=== PATIENT | male | born 1995 | race Caucasian/White ===

== ENCOUNTER 2024-09-13 20:50 | Emergency (ER) | payer MEDICAID ==
[~2024-09-13] VITALS: Ht 177.8 cm; Wt 88.6 kg
--- NOTE | 2024-09-13 21:14 | ED.PDOC ---
History of Present Illness HPI Comments 29-year-old Male who came to ER for penile problems. Patient recently diagnosed to have diabetes, is on metformin, however he stopped taking his metformin a few days ago, since he claims he feels better without it. Patient coming in for swelling and pain of his penis. Has a history of yeast infection. Blood sugar taken at home was 368. Chief Complaint: Penile Problem Time Seen by MD: 21:14 Primary Care Provider: Susanne Beyer Reviewed Notes: Nurses Notes Allergies: Coded Allergies: NO KNOWN ALLERGIES (Unverified , 10/09/16) Information Source: Patient Mode of Arrival: Ambulatory Severity: Moderate Timing: Days Duration: Since onset Past Medical History PAST MEDICAL HISTORY: DM, UTI'S Past Medical History (Other): Pancreatitis Surgical History: Denies all surgeries Social History Smoker: Non-Smoker Alcohol: Denies ETOH Use Drugs: Denies Drug Use Lives In: Home Constitutional: denies: chills, diaphoresis, fatigue, fever, malaise, sweats, weakness, others EENTM: denies: blurred vision, double vision, ear bleeding, ear discharge, ear drainage, ear pain, ear ringing, eye pain, eye redness, hearing loss, mouth pain, mouth swelling, nasal discharge, nose bleeding, nose congestion, nose pain, photophobia, tearing, throat pain, throat swelling, voice changes, others Respiratory: denies: cough, hemoptysis, orthopnea, SOB at rest, shortness of breath, SOB with excertion, stridor, wheezing, others Cardiovascular: denies: chest pain, dizzy spells, diaphoresis, Dyspnea on exertion, edema, irregular heart beat, left arm pain, lightheadedness, palpitations, PND, syncope, others Gastrointestinal: denies: abdomen distended, abdominal pain, blood streaked bowels, constipated, diarrhea, dysphagia, difficulty swallowing, hematemesis, melena, nausea, poor appetite, poor fluid intake, rectal bleeding, rectal pain, vomiting, others Genitourinary: reports: penile sore, pain; denies: burning, dysuria, flank pain, frequency, hematuria, incontinence, penile discharge, testicle pain, testicle swelling, urgency, others Neurological: denies: dizziness, fainting, headache, left sided numbness, left sided weakness, numbness, paresthesia, pre-existing deficit, right sided numbness, right sided weakness, seizure, speech problems, tingling, tremors, weakness, others Musculoskeletal: denies: back pain, gout, joint pain, joint swelling, muscle pain, muscle stiffness, neck pain, others Integumetry: denies: bruises, change in color, change in hair/nails, dryness, laceration, lesions, lumps, rash, wounds, others Allergic/Immunocompromised: denies: Difficulty Healing, Frequent Infections, Hives, Itching, others Hematologic/Lymphatic: denies: anemia, blood clots, easy bleeding, easy br uising, swollen glands, others Endocrine: denies: excessive hunger, excessive sweating, excessive thirst, excessive urination, flushing, intolerance to cold, intolerance to heat, unexplained weight gain, unexplained weight loss, others Psychiatric: denies: anxiety, bipolar disorder, depression, hopeless, panic disorder, schizophrenia, sleepless, suicidal, others Physical Exam General Appearance: No Apparent Distress, Normal HEENT: Normal ENT Inspection, Pharynx Normal, TMs Normal Neck: Full Range of Motion, Non-Tender, Normal, Normal Inspection Respiratory: Chest Non-Tender, Lungs Clear, No Accessory Muscle Use, No R espiratory Distress, Normal Breath Sounds Cardiovascular: No Edema, No JVD, No Murmur, No Gallop, Normal Peripheral Pulses, Regular Rate/Rhythm Breast Exam: Deferred Gastrointestinal: No Organomegaly, Non Tender, No Pulsatile Mass, Normal Bowel Sounds, Soft Genitalia: Deferred Pelvic: Deferred Rectal: Deferred Extremities: No calf tenderness, Normal capillary refill, Normal inspection, Normal range of motion, Non-tender, No pedal edema Musculoskeletal : Apperance: Normal Neurologic: Alert, delinquent account clerk II-XII nml as Tested, No Motor Deficits, Normal Affect, Normal Mood, No Sensory Deficits Cerebellar Function: Normal Reflexes: Normal Skin: Dry, Normal Color, Warm Lymphatic: No Adenopathy Was a procedure done? Was a procedure done?: No Differential Dx Considerations may include: Hyperglycemia, diabetic ketoacidosis, yeast infection, medication noncompliance X-Ray, Labs, Meds, VS Vital Signs Date Time Temp Pulse Resp B/P (MAP) Pulse Ox O2 Delivery O2 Flow Rate FiO2 09/13/24 21:26 108 18 95 Room Air 09/13/24 21:25 98.3 108 18 141/86 (104) 95 98.3 09/13/24 20:56 99.5 119 18 145/95 (112) 96 Lab Test 09/13/24 21:05 09/13/24 21:02 Range/Units White Blood Count 8.8 4.4-10.8 10^3/uL Red Blood Count 4.85 4.5-5.90 10^6/uL Hemoglobin 15.0 13.5-17.5 g/dL Hematocrit 42.3 41.0-53.0 % Mean Corpuscular Volume 87.1 80.0-100.0 fL Mean Corpuscular Hemoglobin 30.9 28.0-32.0 pg Mean Corpuscular Hemoglobin Concent 35.5 32.0-36.0 g/dL Red Cell Distribution Width 13.5 11.8-14.3 % Platelet Count 196 140-450 10^3/uL Mean Platelet Volume 10.3 6.9-10.8 fL Neutrophils (%) (Auto) 62.9 37.0-80.0 % Lymphocytes (%) (Auto) 26.0 10.0-50.0 % Monocytes (%) (Auto) 10.2 0.0-12.0 % Eosinophils (%) (Auto) 0.4 0.0-7.0 % Basophils (%) (Auto) 0.5 0.0-2.0 % Neutrophils # (Auto) 5.5 1.6-8.6 10 ^3/uL Lymphocytes # (Auto) 2.3 0.4-5.4 10 ^3/uL Monocytes # (Auto) 0.9 0-1.3 10 ^3/uL Eosinophils # (Auto) 0 0-0.8 10 ^3/uL Basophils # (Auto) 0 0-0.2 10 ^3/uL Nucleated Red Blood Cells 0.2 % Sodium Level 132 L 136-145 mmol/L Potassium Level 4.0 3.5-5.1 mmol/L Chloride Level 97 L 98-107 mmol/L Carbon Dioxide Level 26 20-31 mmol/L Anion Gap 9 5-15 Blood Urea Nitrogen 12 9-23 mg/dL Creatinine 1.03 0.700-1.30 mg/dL Glomerular Filtration Rate Calc 100 >90 mL/min BUN/Creatinine Ratio 11.7 10.0-20.0 Serum Glucose 334 H 74-106 mg/dL Calcium Level 9.9 8.7-10.4 mg/dL Urine Color Light-yellow Yellow Urine Clarity Clear Clear Urine pH 6.0 5.0-9.0 Urine Specific [place] 1.038 H 1.001-1.035 Urine Protein Trace H Negative Urine Ketones 2+ H Negative Urine Blood Negative Negative /uL Urine Nitrite Negative Negative Urine Bilirubin Negative Negative Urine Urobilinogen Normal Negative mg/dL Urine Leukocyte Esterase Negative Negative /uL Urine RBC 3 0 - 3 /hpf Urine WBC 1 0 - 3 /hpf Urine Squamous Epithelial Cells Few <5 /hpf Urine Bacteria None seen None Seen /hpf Urine Glucose 4+ H Normal mg/dL Current Medications Medications (Trade) Dose Ordered Sig/Ovidio Route Start Time Stop Time Status Last Admin Acetaminophen (Tylenol Tablet) 650 mg ONCE ONCE PO 09/13/24 21:30 09/13/24 21:31 DC 09/13/24 21:35 Time of 1ST Reevaluation: 21:08 Reevaluation 1ST: Unchanged Patient Education/Counseling: Diagnosis, Treatment Family Education/Counseling: No Family Present Departure 1 Departure Time of Disposition: 22:24 (Patient with balanitis uncontrolled diabetes. We will discharge patient home) Impression: Primary Impression: Uncontrolled diabetes mellitus Qualified Codes: E11.65 - Type 2 diabetes mellitus with hyperglycemia Additional Impression: Balanitis Disposition: HOME / SELF CARE / HOMELESS Condition: Stable Additional Instructions: You have balanitis You were prescribed antibiotics. Please take as directed. It is important to take your metformin. You should follow up with the regular doctor within 1 week to ensure you are doing better. e-Prescriptions Clotrimazole (Lotrimin) 1 Applic Ap 1 APPLIC TOP BID for 7 Days, #1 APPLIC Prov: QAMAR SMITH MD 09/13/24 Discharged With: Self Critical Care Note Critical Care Time?: No Stability Stability form required: No Heart Score Heart Score: Heart Score Response (Comments) Value History N/A 0 EKG N/A 0 Age N/A 0 Risk Factors N/A 0 Troponin N/A 0 Total 0 I personally scribed for QAMAR SMITH MD ([email or web address]) on 09/13/24 at 21:14. Electronically submitted by Wade Jensen ([email or web address]). QAMAR SMITH MD Sep 13, 2024 21:14
[2024-09-13 21:25] VITALS: BP 141/86
[2024-09-13 21:26] VITALS: PULSE 108; RESP 18; O2SAT 95
[2024-09-13 21:33] LABS: Urine Bacteria None Seen /hpf (None Seen)
[2024-09-13] MEDS: ACETAMINOPHEN 325 MG TAB PO ONE (21:35)
[2024-09-13 21:41] LABS: Urine Blood Negative /uL (Negative); Urine Clarity Clear (Clear); Urine Color Light-Yellow (Yellow); Urine Protein, UAD TRACE (Negative); Urine Specific Gravity 1.038 (1.001-1.035); Urine Urobilinogen Normal (Negative); Urine WBC 1 /hpf (0 - 3)
[2024-09-13 21:44] LABS: Chloride 97 mmol/L (98-107); Sodium 132 mmol/L (136-145)
[2024-09-13 21:45] LABS: Anion Gap 9 (5-15); Calcium 9.9 mg/dL (8.7-10.4); Carbon Dioxide 26 mmol/L (20-31)
[2024-09-13 21:50] LABS: BUN/Creatinine Ratio 11.7 (10.0-20.0); Blood Urea Nitrogen 12 mg/dL (9-23); Glucose 334 mg/dL (74-106)
[2024-09-13 22:00] LABS: Basophils # (auto) 0 10 ^3/uL (0-0.2); Basophils % (auto) 0.5 % (0.0-2.0); Eosinophils # (auto) 0 10 ^3/uL (0-0.8); Eosinophils % (auto) 0.4 % (0.0-7.0); Hematocrit 42.3 % (41.0-53.0); Lymphocytes # (auto) 2.3 10 ^3/uL (0.4-5.4); Mean Corpuscular Hemoglobin 30.9 pg (28.0-32.0); Mean Corpuscular Hgb Conc. 35.5 g/dL (32.0-36.0); Mean Corpuscular Volume 87.1 fL (80.0-100.0); Monocytes # (auto) 0.9 10 ^3/uL (0-1.3); Monocytes % (auto) 10.2 % (0.0-12.0); Neutrophils # (auto) 5.5 10 ^3/uL (1.6-8.6); Neutrophils % (auto) 62.9 % (37.0-80.0); Nucleated Red Blood Cells % 0.2 %; Platelet Count (auto) 196 10^3/uL (140-450); Red Blood Cells 4.85 10^6/uL (4.5-5.90); Red Cell Distribution Width 13.5 % (11.8-14.3); White Blood Cell 8.8 10^3/uL (4.4-10.8)
[2024-09-13] MEDS ORDERED: CLOT1CRE56 TOP (22:26)
[2024-09-13] MEDS: CLOTRIMAZOLE 1 % CREAM 15GM TOP ONE (22:37)
[2024-09-13 22:38] VITALS: TEMP 98.3
== END 2024-09-13 22:47 | disposition home or self-care (01) ==
LOC: ER 20:50
DX: N48.1 Balanitis (principal); E11.65 Type 2 diabetes mellitus with hyperglycemia
CPT/HCPCS: 36415; 80048; 81001; 85025

== ENCOUNTER 2025-02-25 19:18 | Emergency (ER) | payer MEDICAID ==
[~2025-02-25] VITALS: Ht 177.8 cm; Wt 94.3 kg
[~2025-02-25 19:18] MED LIST: CLOT1CRE56 TOP
[2025-02-25 20:18] LABS: Urine Bacteria None Seen /hpf (None Seen)
[2025-02-25 20:26] LABS: Anion Gap 11 (5-15); Calcium 10.1 mg/dL (8.7-10.4); Carbon Dioxide 22 mmol/L (20-31)
[2025-02-25 20:32] LABS: BUN/Creatinine Ratio 12.1 (10.0-20.0)
[2025-02-25 20:33] LABS: Blood Urea Nitrogen 12 mg/dL (9-23); Chloride 93 mmol/L (98-107); Glucose 338 mg/dL (74-106); Potassium 4.5 mmol/L (3.5-5.1); Sodium 126 mmol/L (136-145)
[2025-02-25 20:34] LABS: Urine Blood Negative /uL (Negative); Urine Clarity Clear (Clear); Urine Color Light-Yellow (Yellow); Urine Protein, UAD TRACE (Negative); Urine Specific Gravity 1.041 (1.001-1.035); Urine Squamous Epithelial Cell None Seen /hpf (<5); Urine Urobilinogen Normal (Negative); Urine WBC < 1 /HPF (0-3); Urine pH 5.5 (5.0-9.0)
[2025-02-25 20:57] LABS: COVID19 ANTIGEN SOFIA FIA NEGATIVE (NEGATIVE); Rapid Influenza A Negative (Negative); Rapid Influenza B Negative (Negative)
[2025-02-25 21:39] LABS: Basophils # (auto) 0.1 10 ^3/uL (0-0.2); Basophils % (auto) 0.8 % (0.0-2.0); Eosinophils # (auto) 0.1 10 ^3/uL (0-0.8); Eosinophils % (auto) 2.1 % (0.0-7.0); Hemoglobin 16.8 g/dL (13.5-17.5); Lymphocytes # (auto) 2.5 10 ^3/uL (0.4-5.4); Lymphocytes % (auto) 36.4 % (10.0-50.0); Monocytes # (auto) 0.5 10 ^3/uL (0-1.3); Monocytes % (auto) 7.9 % (0.0-12.0); Neutrophils # (auto) 3.7 10 ^3/uL (1.6-8.6); Neutrophils % (auto) 52.8 % (37.0-80.0); Nucleated Red Blood Cells % 0.3 %; Platelet Count (auto) 216 10^3/uL (140-450); White Blood Cell 6.9 10^3/uL (4.4-10.8)
--- NOTE | 2025-02-25 21:55 | DVH ---
CHEST RADIOGRAPH Indication: hyperglycemia Technique: Single frontal view of the chest was obtained Comparison: None FINDINGS: Lines and Tubes: None Lungs: Clear Pleura: No effusion. No pneumothorax. Cardiomediastinal contours: Unremarkable Bones: Unremarkable IMPRESSION: Clear lungs.
[2025-02-25 22:02] LABS: Red Blood Cells 5.71 10^6/uL (4.5-5.90)
[2025-02-25 22:03] LABS: Hematocrit 48.4 % (41.0-53.0); Mean Corpuscular Hemoglobin 29.4 pg (28.0-32.0); Mean Corpuscular Hgb Conc. 34.7 g/dL (32.0-36.0); Mean Corpuscular Volume 84.8 fL (80.0-100.0); Red Cell Distribution Width 13.1 % (11.8-14.3)
--- NOTE | 2025-02-25 22:25 | ED.PDOC ---
History of Present Illness HPI Comments 29-year-old male brought in by self, referred from urgent care for evaluation of elevated blood glucose. Patient states he went to urgent Care to be evaluated for a sore throat. He was tested for strep, which was negative. He was also found to have an elevated blood glucose in the 300s, so was referred to the emergency room. Patient states he has a history of diabetes, however has been off of his medications for the last 2 months. He was taking metformin. He denies any fever, cough, difficulty swallowing or difficulty breathing. He denies abdominal pain, nausea, vomiting or fever. Chief Complaint: Hyperglycemia Time Seen by MD: 19:45 Primary Care Provider: Susanne Beyer Allergies: Coded Allergies: NO KNOWN ALLERGIES (Unverified , 10/09/16) Home Meds Active Scripts Ibuprofen Micronized (Ibuprofen) 600 Mg Tab, 600 MG PO Q6HP PRN, #30 TAB prn fever or pain, take with food Prov:WALTER MCCOY MD 02/26/25 Metformin Hydrochloride (Metformin Hcl) 500 Mg Tab, 1 TAB PO BID, #60 TAB 3 Refills Prov:WALTER MCCOY MD 02/26/25 Amoxicillin Trihydrate (Amoxicillin) 500 Mg Tab, 1 TAB PO TID for 10 Days, #30 TAB Prov:WALTER MCCOY MD 02/26/25 Clotrimazole (Lotrimin) 1 Applic Ap, 1 APPLIC TOP BID for 7 Days, #1 APPLIC Prov:QAMAR SMITH MD 09/13/24 Mode of Arrival: Ambulatory Past Medical History PAST MEDICAL HISTORY: DM, UTI'S Surgical History: Denies all surgeries Family History Family History: Reviewed,noncontributory to illness Social History Smoker: Cigarettes Alcohol: Denies ETOH Use Drugs: Denies Drug Use Lives In: Home All Other Systems: Reviewed and Negative (Comprehensive systems review obtained and negative except for what is stated in the HPI.) Physical Exam General Appearance: No Apparent Distress HEENT: Other (Mild pharyngeal erythema. No edema, exudate or uvular deviation) Neck: Full Range of Motion, Normal Inspection Respiratory: Lungs Clear, No Accessory Muscle Use, No Respiratory Distress, Normal Breath Sounds Cardiovascular: No Edema, No JVD, Regular Rate/Rhythm Breast Exam: Deferred Gastrointestinal: Non Tender, Soft Genitalia: Deferred Pelvic: Deferred Rectal: Deferred Extremities: Normal inspection, Normal range of motion, Non-tender, No pedal edema Neurologic: Alert (Oriented x4), Normal Affect, Normal Mood, Other (Ambulatory without difficulty) Cerebellar Function: NOT DONE Reflexes: NOT DONE Skin: Dry, Normal Color, Warm Lymphatic: NOT DONE Was a procedure done? Was a procedure done?: No Differential Dx Considerations may include: Hyperglycemia, DKA, hyperglycemic hyperosmolar state, electrolyte imbalance, pharyngitis, tonsillitis, viral syndrome, among others X-Ray, Labs, Meds, VS Vital Signs Date Time Temp Pulse Resp B/P (MAP) Pulse Ox O2 Delivery O2 Flow Rate FiO2 02/25/25 23:34 98.7 88 19 131/89 (103) 98 98.7 02/25/25 19:40 98.5 100 16 140/93 (109) 96 98.5 Lab Test 02/25/25 21:23 02/25/25 20:59 02/25/25 19:57 02/25/25 19:46 Range/Units White Blood Count 6.9 4.4-10.8 10^3/uL Red Blood Count 5.71 4.5-5.90 10^6/uL Hemoglobin 16.8 13.5-17.5 g/dL Hematocrit 48.4 41.0-53.0 % Mean Corpuscular Volume 84.8 80.0-100.0 fL Mean Corpuscular Hemoglobin 29.4 28.0-32.0 pg Mean Corpuscular Hemoglobin Concent 34.7 32.0-36.0 g/dL Red Cell Distribution Width 13.1 11.8-14.3 % Platelet Count 216 140-450 10^3/uL Mean Platelet Volume 9.7 6.9-10.8 fL Neutrophils (%) (Auto) 52.8 37.0-80.0 % Lymphocytes (%) (Auto) 36.4 10.0-50.0 % Monocytes (%) (Auto) 7.9 0.0-12.0 % Eosinophils (%) (Auto) 2.1 0.0-7.0 % Basophils (%) (Auto) 0.8 0.0-2.0 % Neutrophils # (Auto) 3.7 1.6-8.6 10 ^3/uL Lymphocytes # (Auto) 2.5 0.4-5.4 10 ^3/uL Monocytes # (Auto) 0.5 0-1.3 10 ^3/uL Eosinophils # (Auto) 0.1 0-0.8 10 ^3/uL Basophils # (Auto) 0.1 0-0.2 10 ^3/uL Nucleated Red Blood Cells 0.3 % Troponin I High Sensitivity < 3 L < 3 L </=54 ng/L Sodium Level 126 L 136-145 mmol/L Potassium Level 4.5 3.5-5.1 mmol/L Chloride Level 93 L 98-107 mmol/L Carbon Dioxide Level 22 20-31 mmol/L Anion Gap 11 5-15 Blood Urea Nitrogen 12 9-23 mg/dL Creatinine 0.99 0.700-1.30 mg/dL Glomerular Filtration Rate Calc 105 >90 mL/min BUN/Creatinine Ratio 12.1 10.0-20.0 Serum Glucose 338 H 74-106 mg/dL Calcium Level 10.1 8.7-10.4 mg/dL B-Type Natriuretic Peptide < 0 0-100 pg/mL Influenza Type A Antigen Negative Negative Influenza Type B Antigen Negative Negative SARS-CoV-2 Antigen (Rapid) Negative NEGATIVE Test 02/25/25 19:45 02/25/25 19:41 Range/Units Urine Color Light-yellow Yellow Urine Clarity Clear Clear Urine pH 5.5 5.0-9.0 Urine Specific [place] 1.041 H 1.001-1.035 Urine Protein Trace H Negative Urine Ketones 2+ H Negative Urine Blood Negative Negative /uL Urine Nitrite Negative Negative Urine Bilirubin Negative Negative Urine Urobilinogen Normal Negative mg/dL Urine Leukocyte Esterase Negative Negative /uL Urine RBC <1 0 - 3 /hpf Urine Microscopic WBC < 1 0-3 /HPF Urine Squamous Epithelial Cells None seen <5 /hpf Urine Bacteria None seen None Seen /hpf Urine Glucose 4+ H Normal mg/dL POC Glucose 346 H 70-106 mg/dl Current Medications Medications (Trade) Dose Ordered Sig/Ovidio Route Start Time Stop Time Status Last Admin Metformin HCl (Glucophage) 500 mg ONCE ONCE PO 02/25/25 19:45 02/25/25 19:48 DC 02/25/25 23:04 Sodium Chloride 2,000 ml @ 1,000 mls/hr Q2H ONCE IV 02/25/25 19:45 02/25/25 21:44 DC 02/25/25 22:50 PROCEDURE(s): CXRP - CHEST PORTABLE REASON: hyperglycemia ORDER NUMBER(s): [id number], ACCESSION NUMBER(s): [id number] CHEST RADIOGRAPH Indication: hyperglycemia Technique: Single frontal view of the chest was obtained Comparison: None FINDINGS: Lines and Tubes: None Lungs: Clear Pleura: No effusion. No pneumothorax. Cardiomediastinal contours: Unremarkable Bones: Unremarkable IMPRESSION: Clear lungs. X-Ray, Labs, Meds, VS Comment 29-year-old male with a history of diabetes referred by urgent care for evaluation of elevated blood glucose and sore throat Vitals remarkable for BP 140/93 Exam remarkable for mild pharyngeal erythema Rhythm strip independently interpreted by me: Sinus rhythm, rate 100, no ectopy. Chest x-ray unremarkable CBC normal, basic metabolic panel remarkable for sodium 126, chloride 93, glucos e 338, influenza and COVID negative Patient treated with the following in the ED: 1 L 0.9 normal saline IV bolus, metformin 500 mg p.o.. Regular insulin 4 units subQ was ordered, but patient refused. On re-evaluation, blood glucose was essentially stable. Vitals were stable. Patient is well-appearing. Patient appears stable for discharge with close outpatient follow-up with his primary physician. Rx amoxicillin, metformin, ibuprofen Time of 1ST Reevaluation: 00:34 Reevaluation 1ST: Improved Patient Education/Counseling: Diagnosis, Treatment, Need For Follow Up Family Education/Counseling: No Family Present Departure 1 Departure Time of Disposition: 00:34 Impression: Primary Impression: Pharyngitis Qualified Codes: J02.9 - Acute pharyngitis, unspecified Additional Impression: Hyperglycemia due to diabetes mellitus Disposition: 01 HOME / SELF CARE / HOMELESS Condition: Stable Additional Instructions: Your blood tests showed low sodium and chloride, as well as high blood glucose. We have started to correct this in the ER by giving IV fluids, metformin and insulin. Your chest x-ray was normal. Your tests for COVID and influenza were negative. I have prescribed metformin and antibiotics for a possible bacterial throat infection. Follow-up with your primary doctor in 1-2 days. Return to ER for persistent or worsening symptoms. e-Prescriptions Ibuprofen Micronized (Ibuprofen) 600 Mg Tab 600 MG PO Q6HP PRN, #30 TAB prn fever or pain, take with food Prov: WALTER MCCOY MD 02/26/25 Metformin Hydrochloride (Metformin Hcl) 500 Mg Tab 1 TAB PO BID, #60 TAB 3 Refills Prov: WALTER MCCOY MD 02/26/25 Amoxicillin Trihydrate (Amoxicillin) 500 Mg Tab 1 TAB PO TID for 10 Days, #30 TAB Prov: WALTER MCCOY MD 02/26/25 Discharged With: Self Critical Care Note Critical Care Time?: No Stability Stability form required: No Heart Score Heart Score: Heart Score Response (Comments) Value History N/A 0 EKG N/A 0 Age N/A 0 Risk Factors N/A 0 Troponin N/A 0 Total 0 WALTER MCCOY MD Feb 25, 2025 22:25
[2025-02-25] MEDS: SODIUM CHLORIDE 0.9% 2,000 ML IV ONE (22:50)
[2025-02-25] MEDS: metFORMIN HYDROCHLORIDE 500 MG TAB PO ONE (23:04)
[2025-02-25 23:34] VITALS: BP 131/89; PULSE 88; RESP 19; TEMP 98.7; O2SAT 98
[2025-02-26] MEDS: InsuLIN REG 1unit/0.01ml Soln (100units/ml) SC ONE (00:38)
[2025-02-26] MEDS ORDERED: IBUP1TAB5 PO (00:39)
[2025-02-26] MEDS ORDERED: METF-370 PO (00:39)
[2025-02-26] MEDS ORDERED: AMOX500T3 PO (00:39)
[2025-02-26] MEDS ORDERED: SODIUM CHLORIDE 0.9% 1,000 ML IV ONE (00:45)
== END 2025-02-26 00:48 | disposition home or self-care (01) ==
LOC: ER 19:18
DX: J02.9 Acute pharyngitis, unspecified (principal); E11.65 Type 2 diabetes mellitus with hyperglycemia; F17.210 Nicotine dependence, cigarettes, uncomplicated; Z79.84 Long term (current) use of oral hypoglycemic drugs; Z79.899 Other long term (current) drug therapy; Z20.822 Contact with and (suspected) exposure to COVID-19
CPT/HCPCS: 36415; 71045; 80048; 81001; 82947; 83880; 84484; 87426; 87804; 96360; 99284; J7030; 82962

== ENCOUNTER 2025-04-29 22:53 | Emergency (ER) | payer MEDICAID ==
[~2025-04-29] VITALS: Ht 177.8 cm; Wt 93.3 kg
[~2025-04-29 22:53] MED LIST changes: +AMOX500T3 PO; +IBUP1TAB5 PO; +METF-370 PO
[2025-04-29 23:12] VITALS: O2SAT 93
[2025-04-30] MEDS ORDERED: IBUP-1455 PO (00:24)
[2025-04-30] MEDS ORDERED: AUG875T PO (00:24)
--- NOTE | 2025-04-30 00:25 | ED.PDOC ---
Eye-HPI HPI Comments 29 YEAR-OLD MALE COMPLAINING OF PAIN AND SWELLING TO RIGHT MAXILLA PAIN AND SWELLING. STATES IT HAS BEEN GOING ON FOR THE LAST THREE OR FOUR DAYS. NOTICED A SMALL ABSCESS FORMING. STATES HE HAS MADE A CALL TO DENTIST BUT WAITING A CALL BACK. NOTHING MAKES IT BETTER, EATING MAKES IT WORSE. NO FEVER NO CHILLS. Chief Complaint: Tooth Pain Time Seen by MD: 23:08 Primary Care Provider: Susanne Beyer Reviewed Notes: Nurses Notes Allergies: Coded Allergies: NO KNOWN ALLERGIES (Unverified , 10/09/16) Home Meds Active Scripts Ibuprofen Micronized (Ibuprofen) 600 Mg Tab, 600 MG PO Q6HP PRN, #30 TAB prn fever or pain, take with food Prov:WALTER MCCOY MD 02/26/25 Metformin Hydrochloride (Metformin Hcl) 500 Mg Tab, 1 TAB PO BID, #60 TAB 3 Refills Prov:WALTER MCCOY MD 02/26/25 Amoxicillin Trihydrate (Amoxicillin) 500 Mg Tab, 1 TAB PO TID for 10 Days, #30 TAB Prov:WALTER MCCOY MD 02/26/25 Clotrimazole (Lotrimin) 1 Applic Ap, 1 APPLIC TOP BID for 7 Days, #1 APPLIC Prov:QAMAR SMITH MD 09/13/24 Information Source: Patient Mode of Arrival: Ambulatory Past Medical History PAST MEDICAL HISTORY: DM, UTI'S Surgical History: Denies all surgeries Family History Family History: Reviewed,noncontributory to illness Social History Smoker: Cigarettes Alcohol: Denies ETOH Use Drugs: Denies Drug Use Lives In: Home Constitutional: denies: chills, diaphoresis, fatigue, fever, malaise, sweats, weakness, others EENTM: denies: blurred vision, double vision, ear bleeding, ear discharge, ear drainage, ear pain, ear ringing, eye pain, eye redness, hearing loss, mouth pain, mouth swelling, nasal discharge, nose bleeding, nose congestion, nose pain, photophobia, tearing, throat pain, throat swelling, voice changes, others Respiratory: denies: cough, hemoptysis, orthopnea, SOB at rest, shortness of breath, SOB with excertion, stridor, wheezing, others Cardiovascular: denies: chest pain, dizzy spells, diaphoresis, Dyspnea on exertion, edema, irregular heart beat, left arm pain, lightheadedness, palpitations, PND, syncope, others Gastrointestinal: denies: abdomen distended, abdominal pain, blood streaked bowels, constipated, diarrhea, dysphagia, difficulty swallowing, hematemesis, melena, nausea, poor appetite, poor fluid intake, rectal bleeding, rectal pain, vomiting, others Genitourinary: denies: burning, dysuria, flank pain, frequency, hematuria, incontinence, penile discharge, penile sore, pain, testicle pain, testicle swelling, urgency, others Neurological: denies: dizziness, fainting, headache, left sided numbness, left sided weakness, numbness, paresthesia, pre-existing deficit, right sided numbness, right sided weakness, seizure, speech problems, tingling, tremors, weakness, others Musculoskeletal: denies: back pain, gout, joint pain, joint swelling, muscle pain, muscle stiffness, neck pain, others Integumetry: denies: bruises, change in color, change in hair/nails, dryness, laceration, lesions, lumps, rash, wounds, others Allergic/Immunocompromised: denies: Difficulty Healing, Frequent Infections, Hives, Itching, others Physical Exam General Appearance: No Apparent Distress, Normal HEENT: Normal ENT Inspection, Pharynx Normal, TMs Normal, Other (SWELLING NOTED TO THE RIGHT-SIDED MAXILLARY REGION OVER THE 4TH AND 5TH TOOTH. AREAS TENDER TO PALPATION. NO OBVIOUS DISCHARGE OR PUS NOTED.) Neck: Full Range of Motion, Non-Tender, Normal, Normal Inspection Respiratory: Chest Non-Tender, Lungs Clear, No Accessory Muscle Use, No Respiratory Distress, Normal Breath Sounds Cardiovascular: No Edema, No JVD, No Murmur, No Gallop, Normal Peripheral Pulses, Regular Rate/Rhythm Breast Exam: Deferred Gastrointestinal: No Organomegaly, Non Tender, No Pulsatile Mass, Normal Bowel Sounds, Soft Genitalia: Deferred Pelvic: Deferred Rectal: Deferred Extremities: No calf tenderness, Normal capillary refill, Normal inspection, Normal range of motion, Non-tender, No pedal edema Musculoskeletal : Apperance: Normal Neurologic: Alert, overhead distribution engineer II-XII nml as Tested, No Motor Deficits, Normal Affect, Normal Mood, No Sensory Deficits Cerebellar Function: Normal Reflexes: Normal Skin: Dry, Normal Color, Warm Lymphatic: No Adenopathy Was a procedure done? Was a procedure done?: No EENT DIFF Eye: N/A Mouth: Other (DENTAL ABSCESS, DENTAL CARIES) X-Ray, Labs, Meds, VS Vital Signs Date Time Temp Pulse Resp B/P (MAP) Pulse Ox O2 Delivery O2 Flow Rate FiO2 04/29/25 23:12 98.6 109 16 154/100 (118) 93 98.6 X-Ray, Labs, Meds, VS Comment IMAGING: X-RAYS AND CT SCANS WERE REVIEWED AND INTERPRETED BY THIS PROVIDER, IMAGING SHOWS NO FRACTURES AND NO PATHOLOGICAL DISEASE. PENDING RADIOLOGY REVIEW. LABORATORY: LABS REVIEWED AND INTERPRETED BY THIS PROVIDER. NO SIGNIFICANT ABNORMALITIES NOTED. PATIENT HAS PRIOR MEDICAL VISITS REVIEWED. MED RECONCILIATION PERFORMED VITAL SIGNS REVIEWED Time of 1ST Reevaluation: 00:24 Reevaluation 1ST: Improved Patient Education/Counseling: Diagnosis, Treatment, Need For Follow Up (FOLLOW UP WITH DENTIST NEXT AVAILABLE APPOINTMENT) Family Education/Counseling: Diagnosis SEPSIS Sepsis Screen Date sepsis recognized/suspect: Apr 29, 2025 Time Sepsis recognized/suspect: 2308 Recent Procedure: No On Antibiotic Therapy: No Respiratory Rate >20: No Heart Rate >90: Yes Temp<36 C (96.8 F) or >38.3 C: No SBP <90 or MAP <65 mmHG: No New Acute Mental Status Change: No Is the patient on CPAP, BIPAP,: No Vital Signs Date Time Temp Pulse Resp B/P (MAP) Pulse Ox O2 Delivery O2 Flow Rate FiO2 04/29/25 23:12 98.6 109 16 154/100 (118) 93 98.6 Departure 1 Departure Time of Disposition: 00:23 Impression: Primary Impression: Dental abscess Disposition: HOME / SELF CARE / HOMELESS Condition: Fair e-Prescriptions Ibuprofen Micronized (Ibuprofen) 800 Mg Tab 800 MG PO TID, #30 TAB Prov: BRIANNA GOODE [employer]SPORTATION MANAGER 04/30/25 Amoxicillin & Pot Clavulanate (AUGMENTIN TABLET) 875 Mg Tb 875 MG PO BID for 7 Days, #14 TAB Prov: BRIANNA GOODE [employer]SPORTATION MANAGER 04/30/25 Discharged With: Self Critical Care Note Critical Care Time?: No Stability Stability form required: No Heart Score Heart Score: Heart Score Response (Comments) Value History N/A 0 EKG N/A 0 Age N/A 0 Risk Factors N/A 0 Troponin N/A 0 Total 0 BRIANNA GOODE Apr 30, 2025 00:24
[2025-04-30] MEDS: cefTRIAXone SOD 1,000 MG VL IM ONE (02:32)
[2025-04-30] MEDS: KETOROLAC TROMETH 30 MG/ML 1ML VIAL IM ONE (02:32)
[2025-04-30 02:43] VITALS: BP 137/96; PULSE 93; RESP 18; TEMP 99.3
== END 2025-04-30 03:08 | disposition home or self-care (01) ==
LOC: ER 22:53
DX: K04.7 Periapical abscess without sinus (principal); E11.9 Type 2 diabetes mellitus without complications; F17.210 Nicotine dependence, cigarettes, uncomplicated; Z79.84 Long term (current) use of oral hypoglycemic drugs; Z87.440 Personal history of urinary (tract) infections
CPT/HCPCS: 96372; 99284; J0696; J1885